=== PATIENT | male | born 1990 | race Caucasian/White ===

== ENCOUNTER 2016-10-20 12:31 | Emergency (ER) | payer OTHER ==
[2016-10-20] MEDS ORDERED: OPTIRAY 350 100 ML VIAL EDI IV ONE (12:32)
[2016-10-20] MEDS ORDERED: SODIUM CHLORIDE 0.9% 1,000 ML ONE (12:54)
[2016-10-20] MEDS ORDERED: ONDANSETRON 4 MG VIAL ONE (12:54)
== END 2016-10-20 15:15 | disposition home or self-care (01) ==
LOC: ER 12:31
DX: R10.11 Right upper quadrant pain (principal); R10.31 Right lower quadrant pain; S39.012A Strain of muscle, fascia and tendon of lower back, initial encounter; N50.819 Testicular pain, unspecified
CPT/HCPCS: 36415; 74177; 76870; 80053; 81003; 83690; 85025; 86677; 96361; 96374; 99284; J2405; Q9967